=== PATIENT | female | born 1985 | race African-American/Black ===

== ENCOUNTER 2017-06-16 11:54 | Inpatient (IN) ==
[2017-06-16 13:39] LABS: Basophils % 0.2 % (0.0-0.8); Eosinophils % 0.3 % (0.00-10.9); Hematocrit 39.3 VOL% (35.7-47.0); Hemoglobin 13.9 GM/DL (12.0-16.0); Immature Granulocytes % 0.2 %; Immature Granulocytes Absolute 0.01 #; Mean Corpuscular HGB Conc 35.4 GM/DL (32-36); Mean Corpuscular Hemoglobin 30 PG (27-34); Mean Corpuscular Volume 83.8 FL (87-102); Monocytes # 0.6 10*3/uL (0.11-0.8); Monocytes % 9.6 % (1.7-12.7); Neutrophils # 3.2 10*3/uL (1.4-7.4); Neutrophils % 55.7 % (38.7-73.9); Platelet Count 219 T/CUMM (130-400); Red Blood Count 4.69 MC/CUMM (3.8-5.5); Red Cell Distribution Width 13.2 % (9.3-17.3); White Blood Count 5.7 T/CUMM (4-12)
[2017-06-16 13:51] LABS: INR 0.9; Partial Thromboplastin Time 28.2 SECS (0-40)
[2017-06-16 13:54] LABS: Apearance,Urine CLOUDY (Clear); Bacteria,Urine Occasional /HPF (Few); Bilirubin,Urine Negative (Negative); Blood, Urine Negative (Negative); Glucose,Urine (UA) >=500 mg/dL (Negative); Ketones,Urine Negative (Negative); Mucus,Urine Occasional /LPF (Occasional); Nitrite,Urine Negative (Negative); Protein,Urine Negative; RBC,Urine 1 /HPF (0-4); Squamous Epithelial Cell,Urine Occasional /HPF (0-10); Urine Color Red (Yellow); Urine Specific Gravity 1.007 (1.001-1.035); Urine Urobilinogen < 2.0 EU/DL (0.2-1.0); WBC,Urine 1 /HPF (0-6)
[2017-06-16 14:11] LABS: Alanine Aminotransferase 17 U/L (13-56); Albumin 2.9 G/DL (3.4-5.0); Alkaline Phosphatase 145 U/L (45-117); Aspartate Amino Transferase 16 U/L (0-37); Bilirubin,Total < 0.39 MG/DL (0.2-1.0); Blood Urea Nitrogen 6 MG/DL (7-18); Calcium 9.4 MG/DL (8.5-10.1); Glucose 93 MG/DL (74-106); Osmolality,Calculated 272.7 MOS/KG (273-304); Sodium 138 MMOL/L (136-145); Total Protein 6.5 G/DL (6.4-8.3); Uric Acid 3.2 MG/DL (2.6-6.0)
[2017-06-16] MEDS ORDERED: CITRIC ACID/SODIUM CITRATE 30 ML UDCUP PO ONE (14:29)
[2017-06-16] MEDS ORDERED: ceFAZolin 2,000 MG in PREMIX 1 EACH IV PRN (14:29)
[2017-06-16] MEDS ORDERED: FAMOTIDINE 20 MG/2 ML VIAL IV ONE (14:29)
[2017-06-16] MEDS ORDERED: LACTATED RINGERS 1,000 ML IV ONE ×2 (14:30→18:21)
[2017-06-16] MEDS: hydrALAZINE 20 MG/1 ML VIAL IV SCH ×2 (14:33→15:08)
[2017-06-16] MEDS: LACTATED RINGERS 1,000 ML IV SCH (15:45)
[2017-06-16] MEDS ORDERED: LACTATED RINGERS 1,000 ML IV SCH (16:00)
[2017-06-16] MEDS ORDERED: OXYTOCIN 10 UNIT/ML VIAL ONE (16:47)
[2017-06-16] MEDS ORDERED: OXYTOCIN/LR 30 UNIT/1,000 ML BAG IV PRN (16:49)
[2017-06-16] MEDS ORDERED: OXYTOCIN 10 UNIT/ML VIAL IM ONE (16:49)
[2017-06-16] MEDS ORDERED: fentaNYL 100 MCG/2 ML VIAL ONE (18:13)
[2017-06-16] MEDS ORDERED: MORPHINE 10 MG/10 ML VIAL ONE (18:14)
[2017-06-16] MEDS ORDERED: ONDANSETRON 4 MG/2 ML VIAL ONE (18:21)
[2017-06-16 18:28] LABS: Apearance,Urine Slightly Hazy (Clear); Bacteria,Urine Occasional /HPF (Few); Bilirubin,Urine Negative (Negative); Blood, Urine Negative (Negative); Glucose,Urine (UA) Negative (Negative); Ketones,Urine 5 mg/dL (Negative); Mucus,Urine Occasional /LPF (Occasional); Nitrite,Urine Negative (Negative); Protein,Urine Negative; RBC,Urine 1 /HPF (0-4); Squamous Epithelial Cell,Urine Occasional /HPF (0-10); Urine Color Yellow (Yellow); Urine Specific Gravity 1.009 (1.001-1.035); Urine Urobilinogen < 2.0 EU/DL (0.2-1.0); WBC,Urine 1 /HPF (0-6)
[2017-06-16 18:32] LABS: Cord Venous Blood HCO3 21.3 MMOL/L; Cord Venous Blood PCO2 42.9 MMHG
[2017-06-16] MEDS ORDERED: ONDANSETRON 4 MG/2 ML VIAL IV PRN (20:35)
[2017-06-16] MEDS ORDERED: ACETAMINOPHEN 325 MG TABLET PO PRN (20:35)
[2017-06-16] MEDS ORDERED: RHO(D) IMMUNE GLOBULIN 300 MCG SYRINGE IM ONE (20:35)
[2017-06-16] MEDS ORDERED: OXYTOCIN/LR 20 UNIT/1,000 ML BAG IV ONE (20:35)
[2017-06-16] MEDS ORDERED: GLUCAGON 1 MG VIAL IM PRN (21:30)
[2017-06-16] MEDS ORDERED: DEXTROSE 50% 25 GM/50 ML VIAL IV PRN (21:30)
[2017-06-16] MEDS ORDERED: hydrALAZINE 20 MG/1 ML VIAL IV ONE (21:30)
[2017-06-17] MEDS ORDERED: HYDROmorphone 2 MG/1 ML VIAL IV PRN (00:53)
[2017-06-17] MEDS: DOCUSATE SODIUM 100 MG CAPSULE PO SCH ×3 (01:35→20:37)
[2017-06-17] MEDS: ceFAZolin 1,000 MG in SYRINGE 1 EACH IV SCH ×2 (01:55→10:24)
[2017-06-17] MEDS: LACTATED RINGERS 1,000 ML IV SCH ×2 (02:40→04:39)
[2017-06-17] MEDS ORDERED: GLUCAGON 1 MG VIAL IM PRN (05:02)
[2017-06-17] MEDS ORDERED: DEXTROSE 50% 25 GM/50 ML VIAL IV PRN (05:02)
[2017-06-17 05:43] LABS: Basophils % 0.1 % (0.0-0.8); Hematocrit 33.7 VOL% (35.7-47.0); Hemoglobin 11.8 GM/DL (12.0-16.0); Immature Granulocytes % 0.4 %; Immature Granulocytes Absolute 0.04 #; Lymphocytes # 1.5 10*3/uL (1.4-4.0); Lymphocytes % 13.5 % (21.3-54.2); Mean Corpuscular Hemoglobin 30 PG (27-34); Mean Corpuscular Volume 84.7 FL (87-102); Mean Platelet Volume 8.8 FL (9.6-12.0); Monocytes # 0.9 10*3/uL (0.11-0.8); Monocytes % 8.3 % (1.7-12.7); Neutrophils # 8.4 10*3/uL (1.4-7.4); Neutrophils % 77.7 % (38.7-73.9); Platelet Count 193 T/CUMM (130-400); Red Blood Count 3.98 MC/CUMM (3.8-5.5); Red Cell Distribution Width 13.2 % (9.3-17.3); White Blood Count 10.8 T/CUMM (4-12)
[2017-06-17] MEDS: IBUPROFEN 800 MG TABLET PO PRN ×2 (06:00→18:00)
[2017-06-17] MEDS: MULTIVITAMIN (PRENATAL) TABLET PO SCH (09:49)
[2017-06-17] MEDS: diphenhydrAMINE CAP 25 MG CAPSULE PO PRN ×2 (10:02→14:47)
[2017-06-17] MEDS: INSULIN REGULAR 100 UNIT/ML SUBCUT SCH ×3 (10:27→20:42)
[2017-06-17] MEDS: oxyCODONE/ACETAMINOPHEN 5-325 MG TABLET PO PRN (18:43)
[2017-06-17] MEDS: SIMETHICONE CHEW 80 MG TABLET PO PRN (20:37)
[2017-06-17] MEDS: MAGNESIUM HYDROXIDE SUSP 30 ML UDCUP PO PRN (20:37)
[2017-06-17] MEDS: cephALEXin 500 MG CAPSULE PO SCH (20:48)
[2017-06-18] MEDS: oxyCODONE/ACETAMINOPHEN 5-325 MG TABLET PO PRN ×4 (01:32→22:40)
[2017-06-18] MEDS: cephALEXin 500 MG CAPSULE PO SCH ×4 (01:36→20:08)
[2017-06-18] MEDS: DOCUSATE SODIUM 100 MG CAPSULE PO SCH ×2 (08:15→20:09)
[2017-06-18] MEDS: MULTIVITAMIN (PRENATAL) TABLET PO SCH (08:16)
[2017-06-18] MEDS: MAGNESIUM HYDROXIDE SUSP 30 ML UDCUP PO PRN (14:26)
[2017-06-18] MEDS: INSULIN REGULAR 100 UNIT/ML SUBCUT SCH ×3 (16:23→21:17)
[2017-06-18] MEDS ORDERED: BISACODYL 10 MG SUPP RECTAL PRN (19:33)
[2017-06-19] MEDS: cephALEXin 500 MG CAPSULE PO SCH ×6 (01:03→21:33)
[2017-06-19] MEDS: INSULIN REGULAR 100 UNIT/ML SUBCUT SCH ×3 (08:53→16:17)
[2017-06-19] MEDS: DOCUSATE SODIUM 100 MG CAPSULE PO SCH ×2 (09:29→21:33)
[2017-06-19] MEDS: IBUPROFEN 800 MG TABLET PO PRN (09:31)
[2017-06-19] MEDS: MULTIVITAMIN (PRENATAL) TABLET PO SCH (09:31)
[2017-06-19] MEDS ORDERED: INFLUENZA VIRUS VACCINE 0.5 ML SYRINGE IM ONE (10:30)
[2017-06-19] MEDS ORDERED: DIPH/TET/ACEL PERT BOOSTER VACCINE 0.5 ML VIAL IM ONE (10:30)
[2017-06-19] MEDS: MAGNESIUM HYDROXIDE SUSP 30 ML UDCUP PO PRN ×2 (10:31→21:33)
[2017-06-19] MEDS: SIMETHICONE CHEW 80 MG TABLET PO PRN ×2 (10:31→21:33)
[2017-06-19] MEDS: oxyCODONE/ACETAMINOPHEN 5-325 MG TABLET PO PRN (13:52)
[2017-06-20] MEDS: cephALEXin 500 MG CAPSULE PO SCH ×2 (04:31→09:16)
[2017-06-20] MEDS: IBUPROFEN 800 MG TABLET PO PRN (04:31)
[2017-06-20] MEDS: INSULIN REGULAR 100 UNIT/ML SUBCUT SCH ×2 (04:31→08:20)
[2017-06-20 07:50] VITALS: BP 156/90
[2017-06-20] MEDS: DOCUSATE SODIUM 100 MG CAPSULE PO SCH (09:15)
[2017-06-20] MEDS: MULTIVITAMIN (PRENATAL) TABLET PO SCH (09:16)
[2017-06-20] MEDS ORDERED: INFLUENZA VIRUS VACCINE 0.5 ML SYRINGE IM ONE (12:34)
== END 2017-06-20 12:00 | disposition home or self-care (01) | DRG 540 ==
LOC: N.LDOUT 11:54 → N.LD 11:56 → N.OB 06-17
PROVIDERS: ADMIT Obstetrics & Gynecology; ATTEND Obstetrics & Gynecology